=== PATIENT | female | born 1955 | race Caucasian/White ===

== ENCOUNTER → 2023-07-02 | Outpatient (CLI) | payer MEDICARE ==
[~2023-07-02] MED LIST: ATOR40TA PO; CHOL10002 PO; INSDET100 SC; LISI5 PO; METF500C PO; Metformin HCl1000 MG PO; Novolog100 UNIT/1 SC
[2023-07-02 15:12] LABS: BASOPHILS ABSOLUTE AUTO 0.07 K/mm3 (0.00-0.23); BASOPHILS PERCENT AUTO 1 % (0-2); EOSINOPHILS ABSOLUTE AUTO 0.16 K/mm3 (0.00-0.68); EOSINOPHILS PERCENT AUTO 2 % (0-6); Hematocrit 40.3 % (33.0-51.0); Hemoglobin 13.2 g/dL (11.5-16.0); IMMATURE GRAN PERCENT AUTO 1 % (0-1); LYMPHOCYTES ABSOLUTE AUTO 2.81 K/mm3 (0.84-5.20); LYMPHOCYTES PERCENT AUTO 28 % (21-46); MONOCYTES ABSOLUTE AUTO 0.63 K/mm3 (0.16-1.47); MONOCYTES PERCENT AUTO 6 % (4-13); Mean Corpuscular HGB 28.3 pg (26.0-34.0); Mean Corpuscular HGB Conc 32.8 g/dL (31.5-36.5); Mean Corpuscular Volume 86 fL (80-100); Mean Platelet Volume 9.8 fL (9.1-12.4); NEUTROPHILS ABSOLUTE AUTO 6.27 K/mm3 (1.96-9.15); NEUTROPHILS PERCENT AUTO 62 % (41-73); Platelet Count 302 K/mm3 (150-400); RDW Standard Deviation 43.8 fL (35.1-46.3); Red Blood Cell Count 4.67 M/mm3 (3.80-5.20); White Blood Cell Count 10.04 K/mm3 (4.00-11.30)
[2023-07-02 15:20] LABS: Albumin, Blood 3.5 g/dL (3.4-5.0); Albumin/Globulin Ratio 0.9 (0.8-1.8); Bilirubin, Total 0.2 mg/dL (0.1-1.0); Bun/Creatinine Ratio 15.9 (12.0-20.0); Calcium, Blood 9.3 mg/dL (8.5-10.1); Creatinine, Blood 0.88 mg/dL (0.40-1.00); Globulin, Blood 4.1 g/dL (2.2-4.0); Potassium, Blood 4.1 mmol/L (3.5-5.5); Total Protein, Blood 7.6 g/dL (6.4-8.2)
== END | disposition home or self-care (01) ==
LOC: LAB SHORT 15:04
PROVIDERS: Physician Assistant Surgical
DX: R10.9 Unspecified abdominal pain (principal)
CPT/HCPCS: 80053; 83690; 85025

== ENCOUNTER → 2023-07-03 | Outpatient (CLI) | payer MEDICARE ==
[2023-07-03 16:20] LABS: Adenovirus F 40/41 Not Detected (NOT DETECT); Astrovirus Not Detected (NOT DETECT); Campylobacter Sp Not Detected (NOT DETECT); Cryptosporidium Not Detected (NOT DETECT); Cyclospora Cayetanensis Not Detected (NOT DETECT); E. Coli O157 Not Detected (NOT DETECT); Entamoeba Histolytica Not Detected (NOT DETECT); Enteroaggregative E. coli-EAEC Not Detected (NOT DETECT); Enteropathogenic E. coli-EPEC Not Detected (NOT DETECT); Enterotoxigenic E. coli-ETEC Not Detected (NOT DETECT); Giardia Lamblia Not Detected (NOT DETECT); Norovirus GI/GII Not Detected (NOT DETECT); Plesiomonas Shigelloides Not Detected (NOT DETECT); Rotavirus A Not Detected (NOT DETECT); Salmonella Sp Not Detected (NOT DETECT); Sapovirus Not Detected (NOT DETECT); Shiga Toxin-prod E. coli-STEC Not Detected (NOT DETECT); Shigella/Enteroin E. coli-EIEC Not Detected (NOT DETECT); Vibrio Cholerae Not Detected (NOT DETECT); Vibrio Sp Not Detected (NOT DETECT); Yersinia Enterocolitica Not Detected (NOT DETECT)
== END | disposition home or self-care (01) ==
LOC: LAB SHORT 06:15
PROVIDERS: Physician Assistant Surgical
DX: R19.7 Diarrhea, unspecified (principal)
CPT/HCPCS: 87507

== ENCOUNTER 2024-12-19 06:28 | Day surgery (SDC) | payer MEDICARE, OTHER ==
[~2024-12-19] VITALS: Ht 157.5 cm; Wt 81.4 kg
[2024-12-19] MEDS ORDERED: GABA300 (06:54)
[2024-12-19] MEDS ORDERED: ESOM20 (06:54)
[2024-12-19] MEDS ORDERED: BACLOFEN (06:54)
[2024-12-19] MEDS ORDERED: ALBU90OI (06:54)
[2024-12-19] MEDS ORDERED: LORA10ER (06:55)
[2024-12-19] MEDS ORDERED: OZEMPIC0.25 MG/02 (06:55)
[2024-12-19 09:03] VITALS: BP 135/71
== END 2024-12-19 08:58 | disposition home or self-care (01) ==
LOC: ORSCSDS 06:28
PROVIDERS: Surgery
PROC: 0DBL8ZX Excision of Transverse Colon, Via Natural or Artificial Opening Endoscopic, Diagnostic (ICD-10-PCS; principal; 2024-12-19 08:00)
PROC: 0DBK8ZX Excision of Ascending Colon, Via Natural or Artificial Opening Endoscopic, Diagnostic (ICD-10-PCS; principal; 2024-12-19 08:00)
PROC: 0DBP8ZX Excision of Rectum, Via Natural or Artificial Opening Endoscopic, Diagnostic (ICD-10-PCS; principal; 2024-12-19 08:00)
DX: K52.9 Noninfective gastroenteritis and colitis, unspecified (principal); Z86.0100 Personal history of colon polyps, unspecified; K57.90 Diverticulosis of intestine, part unspecified, without perforation or abscess without bleeding; D12.3 Benign neoplasm of transverse colon; D12.2 Benign neoplasm of ascending colon; K62.1 Rectal polyp; K57.30 Diverticulosis of large intestine without perforation or abscess without bleeding; F41.9 Anxiety disorder, unspecified; F32.A Depression, unspecified; E78.5 Hyperlipidemia, unspecified; I10 Essential (primary) hypertension; G47.33 Obstructive sleep apnea (adult) (pediatric); E11.9 Type 2 diabetes mellitus without complications; K21.9 Gastro-esophageal reflux disease without esophagitis; E66.9 Obesity, unspecified; Z87.891 Personal history of nicotine dependence; Z79.85 Long-term (current) use of injectable non-insulin antidiabetic drugs; Z79.4 Long term (current) use of insulin; Z68.32 Body mass index [BMI] 32.0-32.9, adult; Z79.899 Other long term (current) drug therapy
CPT/HCPCS: 82947; 88305; J2704; J7120

== ENCOUNTER 2025-04-02 12:52 | Inpatient (IN) | payer MEDICARE, OTHER ==
[~2025-04-02] VITALS: Ht 157.5 cm; Wt 79.0 kg
[2025-04-02] VITALS (17 sets, daily range): BP systolic 141–181; BP diastolic 55–91
[~2025-04-02 12:52] MED LIST changes: +ALBU90OI INH; +BACL10 PO; +Budeprion Xl300 MG PO; -CHOL10002 PO; +ESOM20 PO; +GABA300 PO; +HUMALOG100 UNIT/1; +LORA10ER PO; +MELATONIN1 MG PO; +MULTI-VITAMIN1 EAC2 PO; +OZEMPIC2 MG/0.75 SC; +VILAZODONE HCL10 MG PO; +VITAMIN D31000 UNI1 PO; +Vitamin B Comple1 EA PO
[2025-04-02] MEDS ORDERED: CeFAZolin Sodium 2,000 MG in NS 100 ML IV SCH (13:15)
[2025-04-02] MEDS ORDERED: Ondansetron HCl 2 MG / ML 2ML Vial IV PRN ×2 (13:25→18:20)
[2025-04-02] MEDS ORDERED: OxyCODONE 5 mg/Acetamin 325 mg TABLET PO PRN ×2 (13:25→22:00)
[2025-04-02] MEDS ORDERED: Morphine Sulfate 4 MG/1 ML Injection IV PRN ×2 (13:25→18:20)
[2025-04-02] MEDS ORDERED: LOTREXONE4.5 MG PO (14:13)
[2025-04-02] MEDS ORDERED: NITR100CA PO (14:14)
--- NOTE | 2025-04-02 15:06 | NUR ---
History, Chart, Medications and Allergies reviewed before start of procedure. Patient up to Ambulate independently. Gait steady. Pre-Op teaching done. Pt verbalizes understanding. Patient confirms NPO status and agrees with scheduled surgery. Patient reports completing Chlorhexadine shower X2 prior to admission to hospital. Surgical site prepped with 2% Chlorhexidine cloth wipe.
[2025-04-02] MEDS ORDERED: INSPUMP SC (15:13)
[2025-04-02] MEDS ORDERED: LevoFLOXacin 750 MG/D5W 150ML 150 ML IV ONE (16:40)
[2025-04-02] MEDS ORDERED: Ondansetron HCl 2 MG / ML 2ML Vial ONE ×2 (17:13→17:49)
[2025-04-02] MEDS ORDERED: Metoclopramide HCl 5MG / ML 2ML Vial ONE ×2 (17:13→17:49)
[2025-04-02] MEDS ORDERED: Rocuronium Bromide 10 MG/ML 5ML Injection IV ONE ×2 (17:13→18:36)
[2025-04-02] MEDS ORDERED: Bupivacaine 0.25% Epi 1:200000 30 ML Vial ONE (17:13)
[2025-04-02] MEDS ORDERED: FentaNYL Citrate 50 MCG/ML 5 ML Injection ONE (17:13)
[2025-04-02] MEDS ORDERED: FentaNYL Citrate 50 MCG/ML 2 ML Injection ONE ×2 (17:55→19:27)
[2025-04-02] MEDS ORDERED: Labetalol HCL 5 MG/ML 4ML Injection (Single Dose) ONE ×2 (18:01→19:56)
[2025-04-02] MEDS ORDERED: FentaNYL Citrate 50 MCG/ML 2 ML Injection IV PRN ×2 (18:15→18:20)
[2025-04-02] MEDS ORDERED: Metoclopramide HCl 5MG / ML 2ML Vial IV PRN (18:15)
[2025-04-02] MEDS ORDERED: HYDROmorphone HCl/Pf 1MG SYR IV PRN (18:20)
[2025-04-02] MEDS ORDERED: Labetalol HCL 5 MG/ML 4ML Injection (Single Dose) IV PRN (18:20)
[2025-04-02] MEDS ORDERED: Sugammadex Sodium 200 MG/2ML SDV (100 MG/ML) ONE ×2 (18:57→19:12)
[2025-04-02] MEDS ORDERED: HYDROmorphone HCl/Pf 1MG SYR ONE (19:36)
--- NOTE | 2025-04-02 20:20 | NUR ---
ARRIVAL NOTE PT ARRIVED TO UNIT FROM PACU S/P PARTIAL NEPHRECTOMY, ABD INCISIONS CDI & CLOSED WITH TISSUE ADHESIVE. DOUGHERTY TO GRAVITY DRAIN; STAT LOCK IN PLACE AND YELL0W URINE NOTED IN BAG. PT IS A/OX4, HTN IN PACU BUT TRENDING BACK TO BASELINE. IVF INFUSING PER ORDERS. PT DENIES N/T, WIGGLES FINGERS AND TOES. MED PER EMAR FOR PAIN, PT REPORTS COVERAGE. CONT BIOX AND HOME CPAP IN PLACE. HAS CALL LIGHT IN REACH, RESP EVEN/UNLABORED.
[2025-04-02] MEDS ORDERED: HydrALAZINE HCl 20 MG / ML 1ML Vial IV PRN (21:20)
--- NOTE | 2025-04-02 21:30 | NUR ---
PROVIDER UPDATE HOSPITALIST NOTIFIED OF PT'S RECENT CBG AND BP. PER PROVIDER, PLAN TO REPEAT CBG, IF TRENDING DOWN- NO NEW ORDERS NEEDED. PRN FOR HTN OBTAINED. SEE EMAR.
[2025-04-03] VITALS: BP 153/55
[2025-04-03 03:48] VITALS: BP 137/59
--- NOTE | 2025-04-03 05:38 | NUR ---
SHIFT SUMMARY POD 1 S/P PARTIAL NEPHRECTOMY; ABD INCISIONS CDI WITH TISSUE ADHESIVE IN PLACE. PAIN MANAGED PER EMAR. IS A/OX4 WITH VSS. WEARING HOME CPAP WHILE SLEEPING RELATED TO CALI, CONT BIOX IN PLACE. DENIES SOB. DOUGHERTY CATH TO GRAVITY, DRAINING YELLOW URINE. IVF INFUSING PER ORDERS. ANDREA CL DIET, DENIES N/V. AWAITING FIRST OOB AMBULATION. INSULIN PUMP CHARGING, NEW ORDERS OBTAINED FOR CBG COVERAGE- SEE HOSPITALIST NOTE. PT CURRENTLY WATCHING TV IN BED WITH CALL LIGHT IN REACH. WILL GIVE REPORT TO ONCOMING RN.
[2025-04-03 06:04] LABS: BASOPHILS ABSOLUTE AUTO 0.04 K/mm3 (0.00-0.23); BASOPHILS PERCENT AUTO 0 % (0-2); EOSINOPHILS ABSOLUTE AUTO 0.06 K/mm3 (0.00-0.68); EOSINOPHILS PERCENT AUTO 1 % (0-6); Hematocrit 35.0 % (33.0-51.0); Hemoglobin 11.2 g/dL (11.5-16.0); IMMATURE GRAN ABSOLUTE AUTO 0.05 K/mm3 (0.00-0.10); IMMATURE GRAN PERCENT AUTO 0 % (0-1); LYMPHOCYTES ABSOLUTE AUTO 3.34 K/mm3 (0.84-5.20); LYMPHOCYTES PERCENT AUTO 28 % (21-46); MONOCYTES ABSOLUTE AUTO 1.00 K/mm3 (0.16-1.47); MONOCYTES PERCENT AUTO 8 % (4-13); Mean Corpuscular HGB Conc 32.0 g/dL (31.5-36.5); Mean Corpuscular Volume 92 fL (80-100); NEUTROPHILS ABSOLUTE AUTO 7.48 K/mm3 (1.96-9.15); NEUTROPHILS PERCENT AUTO 63 % (41-73); NRBC ABSOLUTE 0.00 K/mm3 (0.00-0.02); NRBC Auto 0.0 /100 WBC (0.0-0.2); Platelet Count 206 K/mm3 (150-400); RDW Coefficient Variation 13.8 % (11.7-14.2); RDW Standard Deviation 46.8 fL (35.1-46.3)
[2025-04-03 06:32] LABS: Alanine Aminotransfer (ALT/SGP 73.0 U/L (12-78); Albumin, Blood 2.9 g/dL (3.4-5.0); Albumin/Globulin Ratio 1.0 (0.8-1.8); Anion Gap 9.0 mmol/L (3-11); Aspartate Aminotrans (AST/SGOT 39.0 U/L (12-37); Bilirubin, Total 0.4 mg/dL (0.1-1.0); Blood Urea Nitrogen 14.0 mg/dL (8-24); CO2, Blood 25.0 mmol/L (21-32); Calcium, Blood 8.8 mg/dL (8.5-10.1); Chloride, Blood 108.0 mmol/L (98-108); Creatinine, Blood 0.59 mg/dL (0.40-1.00); Globulin, Blood 2.9 g/dL (2.2-4.0); Glucose, Blood 192.0 mg/dL (70-99); Magnesium, Blood 1.8 mg/dL (1.6-2.4); Potassium, Blood 3.9 mmol/L (3.5-5.5); Sodium, Blood 138.0 mmol/L (136-145); Total Protein, Blood 5.8 g/dL (6.4-8.2)
[2025-04-03 06:58] VITALS: BP 127/55
[2025-04-03] MEDS ORDERED: Insulin Human Lispro 100 Units/ML 3ML Syringe SC SCH (07:30)
[2025-04-03 14:08] VITALS: BP 144/60
--- NOTE | 2025-04-03 17:39 | NUR ---
SHIFT SUMMARY PT IS POD#2 FOR PARTIAL NEPHRECTOMY. PAIN MANAGED WITH PO PAIN MEDICATION. PT IS TOLERATING PO AND ABLE TO AMBULATE IN THE HALWAYS. PT CALLS APPROPRIATELY.
[2025-04-03 20:54] VITALS: BP 155/60
[2025-04-04 04:14] VITALS: BP 143/62
--- NOTE | 2025-04-04 05:53 | NUR ---
SHIFT SUMMARY POD 3 S/P PARTIAL RIGHT NEPHRECTOMY. ABD INCISIONS CDI, CLOSED WITH TISSUE ADHESIVE. PAIN MANAGED PER EMAR. ANDREA PO INTAKE. DOUGHERTY CATH TO GRAVITY, DRAINING CLEAR LIGHT YELLOW URINE. A/OX4 WITH VSS. AMBULATING IN ROOM AND HALLWAYS IND. PT EAGER FOR D/C. PT CURRENTLY RESTING IN BED WITH CALL LIGHT IN REACH, RESP EVEN AND UNLABORED. WILL GIVE REPORT TO ONCOMING RN.
[2025-04-04 07:21] VITALS: BP 140/66
[2025-04-04] MEDS ORDERED: Percocet 5-3251 EACH PO (09:49)
[2025-04-04] MEDS ORDERED: SULTRIDS PO (09:50)
--- NOTE | 2025-04-04 11:04 | NUR ---
DISCHARGE SUMMARY POD2 PARTIAL NEPHRECTOMY, A/OX4, VSS, TOLERATING PO, AMBULATING IN THE HALLS, DOUGHERTY REMOVED THIS AM PER MD ORDER AND SHE WAS ABLE TO VOID AFTER IT WAS REMOVED, ABD INCISIONS C/D/I WITH ONE HAVING GAUZE/TEGADERM OVER IT. DISCUSSED DC INSTRUCTIONS INCLUDING HOME CARE, MEDICATIONS, AND FOLLOW UP. NO QUESTIONS AT THIS TIME, IV ACCESS REMOVED DURING DC INSTRUCTION DISCUSSION. ESCORTED OUT VIA WC TO PRIVATE AUTO TO GO HOME.
[2025-04-07] MEDS ORDERED: NITR100CA PO (09:30)
== END 2025-04-04 10:38 | disposition home or self-care (01) | DRG 658 ==
LOC: ORSCMMR 12:52 → SURS 13:22 → ORSCMMR 13:22 → SURS 04-04 10:38
PROVIDERS: Student in an Organized Health Care Education/Training Program; ADMIT Urology
PROC: 0TB04ZZ Excision of Right Kidney, Percutaneous Endoscopic Approach (ICD-10-PCS; principal; 2025-04-03)
PROC: 8E0W4CZ Robotic Assisted Procedure of Trunk Region, Percutaneous Endoscopic Approach (ICD-10-PCS; 2025-04-03)
DX: C64.1 Malignant neoplasm of right kidney, except renal pelvis (principal); E11.65 Type 2 diabetes mellitus with hyperglycemia; E78.5 Hyperlipidemia, unspecified; I10 Essential (primary) hypertension; E66.9 Obesity, unspecified; G47.33 Obstructive sleep apnea (adult) (pediatric); F41.9 Anxiety disorder, unspecified; F32.A Depression, unspecified; K21.9 Gastro-esophageal reflux disease without esophagitis; Z96.41 Presence of insulin pump (external) (internal); D50.9 Iron deficiency anemia, unspecified; E86.0 Dehydration; Z90.710 Acquired absence of both cervix and uterus; Z87.891 Personal history of nicotine dependence; Z88.8 Allergy status to other drugs, medicaments and biological substances; Z88.0 Allergy status to penicillin; Z88.1 Allergy status to other antibiotic agents; Z79.899 Other long term (current) drug therapy; Z68.31 Body mass index [BMI] 31.0-31.9, adult
CPT/HCPCS: 36415; 80053; 82947; 83735; 85025; 88307; 88341; 88342; A9270; J1171; J1956; J2270; J2405; J2704; J2765; J3010; J7120

== ENCOUNTER 2025-04-07 08:49 | Emergency (ER) | payer MEDICARE, OTHER ==
[~2025-04-07] VITALS: Ht 157.5 cm; Wt 78.9 kg
[~2025-04-07 08:49] MED LIST changes: +INSPUMP SC; +LOTREXONE4.5 MG PO; +NITR100CA PO; +Percocet 5-3251 EACH PO; +SULTRIDS PO
[2025-04-07] MEDS ORDERED: SULFAMETHOXAZO1 EAC1 PO (09:30)
[2025-04-07 09:50] LABS: BASOPHILS ABSOLUTE AUTO 0.07 K/mm3 (0.00-0.23); BASOPHILS PERCENT AUTO 1 % (0-2); EOSINOPHILS ABSOLUTE AUTO 0.21 K/mm3 (0.00-0.68); EOSINOPHILS PERCENT AUTO 2 % (0-6); Hematocrit 36.8 % (33.0-51.0); Hemoglobin 11.6 g/dL (11.5-16.0); IMMATURE GRAN ABSOLUTE AUTO 0.06 K/mm3 (0.00-0.10); IMMATURE GRAN PERCENT AUTO 1 % (0-1); LYMPHOCYTES ABSOLUTE AUTO 2.40 K/mm3 (0.84-5.20); LYMPHOCYTES PERCENT AUTO 27 % (21-46); MONOCYTES ABSOLUTE AUTO 0.86 K/mm3 (0.16-1.47); MONOCYTES PERCENT AUTO 10 % (4-13); Mean Corpuscular HGB Conc 31.5 g/dL (31.5-36.5); Mean Corpuscular Volume 93 fL (80-100); NEUTROPHILS ABSOLUTE AUTO 5.43 K/mm3 (1.96-9.15); NEUTROPHILS PERCENT AUTO 60 % (41-73); NRBC ABSOLUTE 0.00 K/mm3 (0.00-0.02); NRBC Auto 0.0 /100 WBC (0.0-0.2); Platelet Count 243 K/mm3 (150-400); RDW Coefficient Variation 13.2 % (11.7-14.2); RDW Standard Deviation 45.8 fL (35.1-46.3)
[2025-04-07 10:11] LABS: Alanine Aminotransfer (ALT/SGP 37.0 U/L (12-78); Albumin, Blood 2.9 g/dL (3.4-5.0); Albumin/Globulin Ratio 0.7 (0.8-1.8); Anion Gap 8.0 mmol/L (3-11); Aspartate Aminotrans (AST/SGOT 25.0 U/L (12-37); Bilirubin, Total 0.4 mg/dL (0.1-1.0); Blood Urea Nitrogen 11.0 mg/dL (8-24); CO2, Blood 23.0 mmol/L (21-32); Calcium, Blood 9.2 mg/dL (8.5-10.1); Chloride, Blood 111.0 mmol/L (98-108); Creatinine, Blood 0.71 mg/dL (0.40-1.00); Globulin, Blood 4.1 g/dL (2.2-4.0); Glucose, Blood 152.0 mg/dL (70-99); Potassium, Blood 4.2 mmol/L (3.5-5.5); Sodium, Blood 138.0 mmol/L (136-145); Total Protein, Blood 7.0 g/dL (6.4-8.2)
[2025-04-07 11:42] LABS: Source, Urine Clean Catch
[2025-04-07 11:55] LABS: Bilirubin, Urine Neg (Neg); Color, Urine Yellow (P-Yellow); Glucose Qualitative, Urine Neg (Neg); Ketones, Urine Neg (Neg); Leukocyte Esterase, Urine Neg (Neg); Protein, Urine 2+ (Neg); Specific Gravity, Urine 1.010 (1.003-1.022); Urobilinogen, Urine NORM (Normal)
[2025-04-07 12:40] LABS: Red Blood Cells, Urine 50-100 /hpf (0-2); White Blood Cells, Urine 0-2 /hpf (0-5)
[2025-04-07 13:42] VITALS: BP 150/70
== END 2025-04-07 13:43 | disposition home or self-care (01) ==
LOC: ER 08:49
PROVIDERS: Emergency Medicine; Physician Assistant
DX: R50.9 Fever, unspecified (principal); E11.9 Type 2 diabetes mellitus without complications; I10 Essential (primary) hypertension; E78.00 Pure hypercholesterolemia, unspecified; G47.30 Sleep apnea, unspecified; Z87.891 Personal history of nicotine dependence; Z88.0 Allergy status to penicillin; Z88.8 Allergy status to other drugs, medicaments and biological substances
CPT/HCPCS: 74177; 80053; 81001; 83605; 85025; 99284-25; Q9967